=== PATIENT | female | born 1950 | race Caucasian/White ===

== ENCOUNTER → 2016-06-27 | Outpatient (CLI) | payer OTHER ==
[~2016-06-27] MED LIST: EZET10TA63; OXYC5TAB PO
--- NOTE | 2016-06-27 13:16 | DIAGNOSTIC IMAGING REPORT ---
Venous Doppler right leg RIGHT VENOUS DOPP LOWER EXT UNILAT CLINICAL HISTORY: LEG PAIN Right pain. Edema. TECHNIQUE: Venous Doppler COMPARISON STUDY: None FINDINGS: Normal study IMPRESSION: Normal study Electronically signed by: Saud Dawson M.D. 06/27/2016 1:14 PM Dictated Date/Time: 06/27/2016 1:14 PM
== END | disposition home or self-care (01) ==
LOC: C.ULTR 12:36
PROVIDERS: ATTEND Internal Medicine
DX: R60.0 Localized edema (principal)

== ENCOUNTER 2020-11-19 05:16 | Inpatient (IN) ==
--- NOTE | 2020-11-15 12:39 | Anesthesiology Consultation ---
Date of Service November 15, 2020 Assessment & Plan (1) Encounter for pre-operative examination: Chart Review Chart Review: Acceptable Risk for Surgery and Patient NOT seen in Pre Admission Testing Can we include most recent neuro note given patient's hx/o aneurysms/cerebral hemorrhages. Consults Requested none History Surgery Operation Date: 11/19/20 07:50 Proposed Procedures p Total Laparoscopic Hysterectomy, Bilateral Salpingectomy, Cystoscopy - Rivera Alanis MD Height/Weight Height: 5 ft Weight: 68.039 kg Allergies Allergy/AdvReac Type Severity Reaction Status Date / Time bisacodyl Allergy Unknown SEVERE Verified 11/12/20 09:02 REFLUX/BURNING codeine AdvReac Mild GI UPSET Verified 11/12/20 09:02 lisinopril AdvReac Unknown COUGH Verified 11/12/20 09:02 Medications Home Medications Medication Instructions Recorded Confirmed Last Taken aspirin 81 mg tablet,delayed 81 mg PO PM 07/17/18 11/12/20 09/08/18 release (Aspirin Low Dose) cyanocobalamin (vitamin B-12) 1,000 mcg PO QAM 07/17/18 11/12/20 09/09/18 1,000 mcg tablet (Vitamin B-12) losartan 50 mg-hydrochlorothiazide 1 tab PO QAM 07/17/18 11/12/20 09/09/18 12.5 mg tablet metformin 500 mg tablet,extended 500 mg PO QPM 07/17/18 11/12/20 09/08/18 release 24 hr pantoprazole 20 mg tablet,delayed 20 mg PO QAM 07/17/18 11/12/20 09/08/18 release pravastatin 40 mg tablet 40 mg PO QPM 07/17/18 11/12/20 09/08/18 pyridoxine (vitamin B6) 25 mg 25 mg PO QAM 07/17/18 11/12/20 09/09/18 tablet (Vitamin B-6) folic acid 800 mcg tablet 0.8 mg PO QAM 09/09/18 11/12/20 09/09/18 acetaminophen 500 mg tablet 1,000 mg PO Q6H PRN 11/12/20 11/12/20 Unknown alendronate 70 mg tablet (Fosamax) 70 mg PO WK 11/12/20 11/12/20 Unknown artificial tears(hypromellose) 0.3 1 drp OPHTHALMIC (EYE) HS 11/12/20 11/12/20 Unknown % eye gel (Systane Gel) calcium citrate 200 mg (950 mg) 200 mg PO BID 11/12/20 11/12/20 Unknown tablet Past Medical History Medical History Bleeding nose HX Cancer LEFT BREAST 2013-SURGERY/NO CHEMO/NO RADIATION Cerebral hemorrhage X 2-"BROKEN BLOOD VESSELS"-LAST EPISODE 1990 Diabetes mellitus, type 2 GERD (gastroesophageal reflux disease) Hyperlipidemia Hypertension Osteoarthritis Osteoporosis Past Family History Family History Father Family history of diabetes mellitus Sister Family history of diabetes mellitus Past Surgical History Surgical History Cerebral aneurysm 2015[place]DX'D [place] [facility] [place] [facility] [place] of cholecystectomy WITH APPENDECTOMY History of colonoscopy X 3 History of dilatation and curettage History of mastectomy LEFT BREAST CANCER-BILAT SURGERY-WITH IMPLANTS History of neck surgery BIOPSY LYMPH NODES-BENIGN History of repair of rotator cuff RIGHT History of tooth extraction Hx of lumpectomy LEFT BREAST Nausea and vomiting after administration of anesthetic agent Social History Smoking Status: Former smoker Do You Dip or Chew Tobacco: No Smoking End Date: QUIT 2001 Hx Alcohol Use: No Hx Substance Use: No Testing Laboratory Results Labs 11/12/20: Na 141, K 4.2, Cl 102, bicarb 28, BUN 18, creat 0.8, glucose 118. WBC 5.58, Hgb 13.5, Hct 40.2, Plt 159 Electrocardiogram Date: 06/30/20 Sinus bradycardia. Otherwise normal ECG. HR 58
[2020-11-19] MEDS ORDERED: LR 15ML/HR IV SCH (06:00)
[2020-11-19] MEDS ORDERED: SODIUM CHLORIDE 0.9% 1000ML 1,000 ML IV SCH (06:00)
[2020-11-19] MEDS ORDERED: ceFAZolin 2000MG 2,000 MG/15 ML SYR IV SCH (06:00)
[2020-11-19] MEDS ORDERED: LACTATED RINGER'S 1,000 ML IV SCH ×2 (06:00→19:00)
[2020-11-19] MEDS ORDERED: fentaNYL citrate 100 MCG/2 ML VIAL IV PRN (06:35)
[2020-11-19] MEDS ORDERED: ATROPINE SULFATE 0.1 MG/ML 10ML SYR IV PRN (06:35)
[2020-11-19] MEDS ORDERED: ONDANSETRON INJ 2 MG/ML 2 ML VIAL IV PRN (06:35)
[2020-11-19] MEDS ORDERED: SCOPOLAMINE 1 MG TDSY TD ONE (06:35)
[2020-11-19] MEDS ORDERED: PROMETHAZINE HCL 6.25 MG in SODIUM CHLORIDE 0.9% 50 ML IV PRN (06:35)
[2020-11-19] MEDS ORDERED: MIDAZOLAM HCL 1 MG/ML 2ML VIAL ONE (06:38)
[2020-11-19] MEDS ORDERED: fentaNYL citrate 100 MCG/2 ML VIAL ONE ×2 (06:38→09:44)
[2020-11-19] MEDS ORDERED: DEXAMETHASONE SOD INJ 4 MG/ML VIAL ONE (06:45)
[2020-11-19] MEDS ORDERED: LIDOCAINE 2% 2 ML VIAL/AMP(20MG/ML) INFIL ONE (06:45)
[2020-11-19] MEDS ORDERED: PROPOFOL IV EMULSION 10 MG/ML 20 ML VIAL IV ONE (06:45)
[2020-11-19] MEDS ORDERED: ONDANSETRON INJ 2 MG/ML 2 ML VIAL ONE ×2 (06:45→09:42)
[2020-11-19] MEDS ORDERED: ROCURONIUM BROMIDE 10 MG/ML 5 ML VIAL IV ONE (06:45)
[2020-11-19] MEDS ORDERED: METHYLENE BLUE 0.5% 10 ML VIAL ONE (06:46)
[2020-11-19] MEDS ORDERED: ACETAMINOPHEN 1000 MG/100 ML IV IV ONE (06:46)
[2020-11-19] MEDS ORDERED: BUPIVACAINE 0.5 % 5 MG/1 ML MPF 30ML VIAL ONE (06:46)
--- NOTE | 2020-11-19 06:59 | History & Physical Bridge Note ---
Date of Service November 19, 2020 History & Physical Bridge Note I have examined the patient, reviewed the History & Physical and in the interval since the performance of the History & Physical I have noted the following changes of clinical significance: no changes noted
[2020-11-19] MEDS ORDERED: MINERAL OIL LIGHT 10 ML BTL ONE (07:10)
[2020-11-19] MEDS ORDERED: GLYCOPYRROLATE 0.2 MG/ML VIAL ONE ×2 (07:54→09:19)
[2020-11-19] MEDS ORDERED: ePHEDrine sulfate 50 MG/ML SYR ONE (07:58)
[2020-11-19] MEDS ORDERED: FLOSEAL HEMOSTATIC MATRIX 10ML TOP ONE (09:15)
[2020-11-19] MEDS ORDERED: NEOSTIGMINE METHYLSULFATE 1 MG/ML 10ML VIAL ONE (09:19)
--- NOTE | 2020-11-19 10:25 | Post Operative Brief Note ---
Immediate Post Op Note v1 Date of Surgery November 19, 2020 Pre & Post Diagnosis Operation Date: 11/19/20 07:00 Pre-Op Diagnosis: Endometrial intraepithelial neoplasia Post-Op Diagnosis: Endometrial intraepithelial neoplasia I identified the patient and participated in the time-out.: Yes Procedure Operation Date: 11/19/20 07:00 Actual Procedures p Total Laparoscopic Hysterectomy, Bilateral Salpingo-Oophorectomy, Cystoscopy(Bilateral) - Rivera Alanis MD Surgeon Rivera Alanis MD Will Call Clerk tello burrows Estimated Blood Loss 15 Findings Consistent with Post-Op Diagnosis
[2020-11-19] MEDS ORDERED: KETOROLAC 30 MG/ML VIAL IV PRN (10:31)
[2020-11-19] MEDS ORDERED: IBUPROFEN 600 MG TAB PO PRN ×2 (10:31→18:46)
[2020-11-19] MEDS ORDERED: oxyCODONE/ACETAMINOPHEN 5mg/325mg TAB PO PRN ×4 (10:31→18:46)
--- NOTE | 2020-11-19 11:10 | Anesthesiology Progress Note ---
Date of Service November 19, 2020 Anesthesia Post Procedure Vital Signs Vital Signs: Temp Pulse Pulse Resp BP Pulse Ox 11/19/20 11:00 81 17 115/67 95 11/19/20 10:50 79 16 102/60 96 11/19/20 10:40 74 20 114/59 L 96 11/19/20 10:30 72 16 105/56 L 96 11/19/20 10:24 96.8 F L 74 16 107/50 L 94 11/19/20 05:44 97.9 F 75 18 149/82 H 99 Pain Intensity Lower Abdomen: Pain Intensity: 5 Transfer of Care Handoff Completed per policy Notes Mental Status: alert / awake / arousable and participated in evaluation Patient Amnestic to Procedure: Yes Nausea / Vomiting: adequately controlled Pain: adequately controlled Airway Patency, RR, SpO2: stable & adequate BP & HR: stable & adequate Hydration State: stable & adequate Anesthetic Complications: no major complications apparent and Pt Satisfied with anesthetic care
[2020-11-19] MEDS ORDERED: ARTIFICIAL TEARS OP STA (13:06)
--- NOTE | 2020-11-19 18:45 | Progress Note ---
Date of Service November 19, 2020 Assessment & Plan (1) Encounter for pre-operative examination: Plan: Pt is s/p lap Hysterectomy with BSO and cystoscopy pt is unable to void spontaneously plan admit overnight [facility] cath Results & Data ([facility]) Vital Signs (Past 12 Hours) Vital Signs Temp Pulse Pulse Resp BP Pulse Ox 11/19/20 18:00 36.8 C 75 20 110/67 99 11/19/20 17:00 78 20 134/66 100 11/19/20 15:00 70 20 130/75 100 11/19/20 13:50 83 16 117/60 97 11/19/20 12:50 36.4 C L 75 18 115/65 96 11/19/20 11:59 36.5 C 76 18 118/64 95 11/19/20 11:25 36.5 C 75 16 98/59 L 94 11/19/20 11:20 71 18 119/76 97 11/19/20 11:10 36.5 C 66 18 115/59 L 97 11/19/20 11:00 81 17 115/67 95 11/19/20 10:50 79 16 102/60 96 11/19/20 10:40 74 20 114/59 L 96 11/19/20 10:30 72 16 105/56 L 96 11/19/20 10:24 36.0 C L 74 16 107/50 L 94
[2020-11-19] MEDS ORDERED: ACETAMINOPHEN 325 MG TAB PO PRN (18:46)
[2020-11-19] MEDS ORDERED: SIMETHICONE 80 MG CHEW PO PRN (18:46)
[2020-11-19] MEDS ORDERED: MAGNESIUM HYDROXIDE SUSP 30 ML UDC PO PRN (18:46)
[2020-11-19] MEDS ORDERED: ZOLPIDEM TARTRATE 5 MG TAB PO PRN (18:46)
[2020-11-19] MEDS: CHECK SCOPOLAMINE PATCH PLACEMENT SCH ×2 (20:59→23:25)
--- NOTE | 2020-11-19 21:50 | Progress Note ---
Date of Service November 19, 2020 Assessment & Plan (1) Encounter for pre-operative examination: Plan: Pt doing well Still unable to void Frederick cath placed w/o difficulty Amanda colored urine Admission and Anticipated Discharge Date Admission Date: November 19, 2020 Results & Data ([facility]) Vital Signs (Past 12 Hours) Vital Signs Temp Pulse Pulse Resp BP Pulse Ox 11/19/20 18:00 36.8 C 75 20 110/67 99 11/19/20 17:00 78 20 134/66 100 11/19/20 15:00 70 20 130/75 100 11/19/20 13:50 83 16 117/60 97 11/19/20 12:50 36.4 C L 75 18 115/65 96 11/19/20 11:59 36.5 C 76 18 118/64 95 11/19/20 11:25 36.5 C 75 16 98/59 L 94 11/19/20 11:20 71 18 119/76 97 11/19/20 11:10 36.5 C 66 18 115/59 L 97 11/19/20 11:00 81 17 115/67 95 11/19/20 10:50 79 16 102/60 96 11/19/20 10:40 74 20 114/59 L 96 11/19/20 10:30 72 16 105/56 L 96 11/19/20 10:24 36.0 C L 74 16 107/50 L 94
[2020-11-19] MEDS ORDERED: ASPIRIN 81 MG ECTAB PO STA (22:07)
[2020-11-19] MEDS: DOCUSATE SODIUM 100 MG CAP PO SCH (22:27)
[2020-11-19] MEDS: LACTATED RINGER'S 1,000 ML IV SCH (22:28)
[2020-11-20] MEDS: LACTATED RINGER'S 1,000 ML IV SCH (05:59)
[2020-11-20] MEDS: CHECK SCOPOLAMINE PATCH PLACEMENT SCH (08:47)
[2020-11-20] MEDS: DOCUSATE SODIUM 100 MG CAP PO SCH (08:49)
[2020-11-20] MEDS ORDERED: PANTOprazole 40 MG TAB PO SCH (09:00)
[2020-11-20] MEDS ORDERED: LOSARTAN/HCTZ 50/12.5MG TAB PO SCH (09:00)
[2020-11-20 09:27] LABS: Basophils # (auto) 0.01 K/uL (0-0.2); Basophils % (auto) 0.1 %; Eosinophils # (auto) 0.01 K/uL (0-0.5); Eosinophils % (auto) 0.1 %; Hematocrit (blood only) 35.1 % (37-47); Hemoglobin 11.8 g/dL (12.0-16.0); Immature Granulocytes # (auto) 0.03 K/uL (0.00-0.02); Immature Granulocytes % (auto) 0.3 %; Lymphocytes % (auto) 19.3 %; Mean Corpuscular Hemoglobin 28.7 pg (25-34); Mean Corpuscular Hgb Conc 33.6 g/dL (32-36); Mean Corpuscular Volume 85.4 fL (80-100); Monocytes # (auto) 0.88 K/uL (0.11-0.59); Monocytes % (auto) 7.7 %; Neutrophils # (auto) 8.29 K/uL (1.4-6.5); Neutrophils % (auto) 72.5 %; Platelet Count 160 K/uL (130-400); RDW Coefficient of Variation 13.1 % (11.5-14.5); RDW Standard Deviation 40.6 fL (36.4-46.3); Red Blood Count 4.11 M/uL (4.2-5.4); White Blood Count 11.42 K/uL (4.8-10.8)
[2020-11-20 10:03] LABS: BUN Creatinine Ratio 12.4 (10-20); Calcium 8.4 mg/dl (8.5-10.1); Creatinine Clr Calc Pharmacy 49.2 ml/min; Est GFR (African American) 73.6 ml/min; Est GFR (Non-African American) 63.5 ml/min; Potassium 3.9 mmol/L (3.5-5.1)
--- NOTE | 2020-11-20 10:44 | Obstetrical Progress Note ---
Date of Service November 20, 2020 Assessment & Plan (1) Postop check: POD #1 s/p TLH, BSO and cystoscopy Urinary retension post op pt doing well Voided 3 X thia Am post cath removal D/c home with instructions pt doing Subjective Review of Systems All systems reviewed & are unremarkable except as noted in HPI & below Physical Exam Constitutional WD/WN, vitals as above Eyes PERRL, conjunctivae normal, anicteric sclerae ENMT external ear and nose normal, oropharynx normal Neck trachea midline, no thyromegaly Respiratory normal respiratory effort, lungs clear to auscultation Cardiovascular RRR, no murmur, no edema Chest (Breasts) normal inspection/palpation of breasts Gastrointestinal (Abdomen) normal bowel sounds, soft, nontender, no hepatosplenomegaly Musculoskeletal no cyanosis or clubbing, extremities motor strength 5/5 Skin + incision (Incision clean,dry and intact) Neurologic patellar DTR's 2+ bilat, sensation intact Psychiatric A+Ox3, euthymic affect Genitourinary no vaginal lesions, no adnexal mass Lymphatic no cervical or axillary lymphadenopathy Results & Data ([facility]) Vital Signs (Past 12 Hours) Vital Signs Temp Pulse Resp BP Pulse Ox 11/20/20 07:35 37 C 63 16 119/67 94 11/20/20 03:10 37.1 C 79 17 95/56 L 93 11/19/20 23:58 36.9 C 76 16 95/49 L 96
--- NOTE | 2020-11-20 21:01 | Discharge Summary (DS) ---
DATE OF ADMISSION: 11/19/2020 DATE OF DISCHARGE: 11/20/2020 HISTORY OF PRESENT ILLNESS: This is a 70-year-old status post breast cancer who underwent D and C, h ysteroscopy, which showed endometrial intraepithelial neoplasia. The patient on 11/19/2020 underwent total laparoscopic hysterectomy with bilateral salpingo-oophorectomy and cystoscopy. Details of jamaal collins is in the surgical record. Postop, the patient was scheduled to go home. She, however, had uri nary retention. After several attempts, she was not able to void. Decision was therefore made to ronda p the patient overnight. This morning, the patient has been able to void 3 times after the catheter has been removed and is doing well and has been discharged home in stable condition. PAST MEDICAL HISTORY: 1. History of breast cancer. 2. History of cerebral hemorrhage. 3. History of diabetes mellitus type 2. 4. History of gastroesophageal reflux disease. 5. History of hyperlipidemia. 6. Hypertension. 7. Osteoporosis. 8. Osteoarthritis. PAST SURGICAL HISTORY: 1. Cerebral aneurysm. 2. History of cholecystectomy. 3. Colonoscopies. 4. D and C. 5. Mastectomy. 6. Neck surgery. 7. Rotator cuff surgery. SOCIAL HISTORY: The patient denies tobacco, drug or alcohol use. The patient is and lives w ith spouse. FAMILY HISTORY: Noncontributory. ALLERGIES: The patient has no significant allergies. SHE REPORTS ALLERGY TO CODEINE, WHICH IS JUST A GI UPSET. REVIEW OF SYSTEMS: Negative except as dictated in the HPI. LABORATORY DATA: H and H this morning is 11.8/35.1. White count is 11.4. Platelets 160. PHYSICAL EXAMINATION: GENERAL: A well-developed, well-nourished white female in no acute distress. VITAL SIGNS: This morning, blood pressure is 118/67, pulse of 67, respirations 16, temperature 37 de grees Celsius. HEART: S1 and S2, regular rhythm and rate. LUNGS: Clear to auscultation bilaterally. ABDOMEN: Nontender, nondistended, positive bowel sounds. Incisions are clean, dry, and intact. PELVIC: Very little discharge. EXTREMITIES: No cyanosis, clubbing or edema. CONDITION ON DISCHARGE: Stable. OPERATIONS: Total laparoscopic hysterectomy, bilateral salpingo-oophorectomy and cystoscopy. DISCHARGE DIAGNOSES: 1. Postoperative after the above surgery. 2. Urinary retention. PLAN ON DISCHARGE: The patient is discharged home with instructions regarding activity, diet, and community hospital appointment. Job ID: [id number]
--- NOTE | 2020-11-22 08:20 | Operative Report (OR) ---
INDICATION FOR SURGERY: This is a 70-year-old status post breast cancer with endometrial intraepithe lial neoplasia. The patient underwent total laparoscopic hysterectomy, bilateral salpingo-oophorecto my, and cystoscopy. PREOPERATIVE DIAGNOSES: 1. History of breast cancer. 2. Endometrial intraepithelial neoplasia. POSTOPERATIVE DIAGNOSES: 1. History of breast cancer. 2. Endometrial intraepithelial neoplasia. PROCEDURE: Total laparoscopic hysterectomy with bilateral salpingo-oophorectomy, and cystoscopy. SURGEON: Rivera Alanis MD [employer]NAM[employer] MANAGER ARCHITECT: Keiko Neri. ANESTHESIA: General. DRAINS: None. ESTIMATED BLOOD LOSS: 15 mL. INTRAVENOUS FLUIDS: 800 mL. URINE OUTPUT: 200 mL of clear urine at the end of the procedure. INTRAOPERATIVE COMPLICATIONS: None. PATIENT CONDITION: Stable. DISPOSITION: Postanesthesia care unit. ATTESTATION: I performed the entire procedure. DECISION FOR [employer] MANAGER ARCHITECT: Flight Reservations Manager was necessary to help with retraction and manipulation of camera a nd other instrument to provide opportunity for safe surgery. FINDINGS: Atrophic vulva and vagina, cervix appeared grossly normal. Laparoscopic findings showed an 8-week size uterus. Both tubes and ovaries appeared grossly normal. There were some adhesions in t he right upper quadrant of the liver and abdominal wall. This was from a prior cholecystectomy. Res t of the abdominopelvic exam was unremarkable. DESCRIPTION OF PROCEDURE: The patient was taken to the operating room where she was prepped and drap ed in normal sterile fashion. A weighted speculum was placed in the vagina. Jett retractor was used to retract the vagina. Frederick catheter was placed in the bladder. Uterus was sounded to 9 cm. A VK uterine manipulator was placed in the uterus. This was to help with retraction during the laparosco py. Attention was paid to the abdominal part of the procedure where a supraumbilical incision was ma de with a scalpel. Nathalie was used to grab the fascia. A Veress needle was introduced into the abdo men at a 45-degree angle while tenting up the abdomen. Intraabdominal placement was confirmed with a water-filled syringe. Suction and water drop test was performed. Abdomen was insufflated with 3 L of CO2 gas. The Veress needle was removed and a 10 mm trocar with a laparoscope was placed in the abdomen and thi s was done under direct visualization, a nonbladed trocar was used. Inspection of the abdomen was as stated under findings. Initial inspection showed no damage to the bowel or abdominal structures. T hree other ports were placed under direct visualization, one 5 mm port on the right, another on the l eft, and another 10 mm port on the left lower quadrant. LigaSure was passed through the left accessory report. The left fallopian tube was identified, grasp ed 4 cm from the cornu of the uterus with the LigaSure and transected following the opening of the le ft anterior leaf of the broad ligament. This allowed for ____ procedure, left broad ligament. Mid-s ection of the left broad ligament, utero-ovarian and meso-ovarian pedicles were transected as well. There was good hemostasis. Same procedure was performed on the contralateral side. Anterior broad l igament dissection was carried out to the mid-section of the vesicouterine peritoneum over the bladde r using the Harmonic scalpel. Same procedure was performed on the contralateral side. Posterior bro ad ligament peritoneum was carefully dissected also from both sides over the uterosacral arch in orde r to display the ureters laterally. Using traction and countertraction, the [place] retractor and a n irrigation probe was used to further dissect the bladder off the lower segment of the uterus. Blad juan pillars and pubovesical fascia was dissected as well. Harmonic scalpel was used to obtain hemost asis where needed. The uterine manipulator was now palpated over the vaginal tissue. The right uterine pelvic pedicles were skeletonized and coagulated with LigaSure. Good hemostasis was obtained. Same procedure was pe rformed on the contralateral side. Cardinal ligaments were transected on both sides. Once good hemo stasis was obtained, colpotomy was performed using the Harmonic scalpel from both sides. Uterus was removed through the vagina while still attached to the uterine manipulator. A glove filled with spon ge was placed into the vagina to help maintain pneumoperitoneum. With a grasper, the remaining secti on of the left fallopian tube and ovary were repositioned anteromedially and a salpingo-oophorectomy was performed on both sides. This was performed using the LigaSure. Same procedure was performed on the contralateral side. These specimens were placed in the vagina and removed with a stone holding forcep through the vagina. EndoStitch closure device was passed through the 10 mm port on the left and using a [place] grasper for traction, the colpotomy closure was performed. Uterosacral ligaments were incorporated into the closure in order to decrease the risk of prolapse. Lapra-Tys were used with the EndoStitch. The cystoscopy part of the procedure was now performed. The scope for the cystoscopy was passed thro [facility] and placed in the bladder. The bladder was examined. No sutures or lesions seen in the bladder. Both ureters were seen with urine ejecting without any difficulty. There was a bubble seen in the uterine cavity, which confirms a close cavity. Once again, the bladder was examined thoroughly with the scope and there were no lesions. There was no blood in the bladder or any obvious trauma seen in the bladder. The scope was removed. Attention was paid back to the abdominal part of the procedure where the laparoscopic site incisions were closed. The 10 mm sites were closed in 2 layers. The left lower incision was closed first by alvaro Ayala and closed under direct visualization. The supraumbilical incision was clos ed by grabbing the fascia and Vicryl suture used to close the fascia, subcutaneous space was closed w ith 2-0 Vicryl, and skin of all incisions closed with 4-0 Monocryl. The patient was sent to recovery in stable condition. Job ID: [id number]
--- NOTE | 2020-11-25 06:29 | Coding Query ---
5 PATHOLOGY To promote full compliance with coding requirements relating to patient care, physician participation is requested in all cases of nutrition representative uncertainty. Please assist us with the question(s) below: Please review the Pathology report and please document any relevant diagnosis(es) below. Thank you. CELESTE Goldman CCS Diagnosis(es): Endometrial intraepithelial neoplasia MTDD
== END 2020-11-20 12:00 | disposition home or self-care (01) | DRG 743 ==
LOC: ASU 05:16 → 3N 18:46
DX: E78.5 Hyperlipidemia, unspecified; R33.8 Other retention of urine; Z85.3 Personal history of malignant neoplasm of breast; K21.9 Gastro-esophageal reflux disease without esophagitis; Z83.3 Family history of diabetes mellitus; Z80.41 Family history of malignant neoplasm of ovary; E11.9 Type 2 diabetes mellitus without complications; M81.0 Age-related osteoporosis without current pathological fracture; Z87.891 Personal history of nicotine dependence; N85.02 Endometrial intraepithelial neoplasia [EIN]

== ENCOUNTER 2021-12-14 11:37 | Observation (INO) ==
[2021-12-14 12:03] LABS: Basophils # (auto) 0.01 K/uL (0-0.2); Basophils % (auto) 0.2 %; Eosinophils # (auto) 0.03 K/uL (0-0.50); Eosinophils % (auto) 0.5 %; Hematocrit (blood only) 39.9 % (34.1-44.9); Hemoglobin 13.4 g/dl (12.0-16.0); Immature Granulocytes # (auto) 0.02 K/uL (0.00-0.02); Immature Granulocytes % (auto) 0.3 %; Lymphocytes # (auto) 1.46 K/uL (1.2-3.4); Lymphocytes % (auto) 23.2 %; Mean Corpuscular Hemoglobin 28.2 pg (25.0-34.0); Mean Corpuscular Hgb Conc 33.6 g/dL (32.0-36.0); Mean Platelet Volume 11.1 fL (9.4-12.3); Monocytes # (auto) 0.42 K/uL (0.24-0.82); Monocytes % (auto) 6.7 %; Neutrophils # (auto) 4.36 K/uL (1.4-6.5); Neutrophils % (auto) 69.1 %; Platelet Count 166 K/uL (130-400); RDW Coefficient of Variation 13.2 % (11.5-14.5); RDW Standard Deviation 40.4 fL (36.4-46.3); Red Blood Count 4.75 M/uL (3.93-5.22)
[2021-12-14 12:15] LABS: Partial Thromboplastin Ratio 0.9; Partial Thromboplastin Time 24.1 Seconds (21.0-31.0); Prothrombin Time 10.5 Seconds (9.0-12.0)
[2021-12-14 12:30] LABS: Albumin Globulin Ratio 1.3 (0.9-2); Albumin Level 4.6 gm/dl (3.4-5.0); BUN Creatinine Ratio 21.4 (10-20); Bilirubin,Total 0.6 mg/dl (0.2-1.0); Calcium 10.4 mg/dl (8.5-10.1); Creatinine Clr Calc Pharmacy 54.5 ml/min; Est GFR (African American) 80.5 ml/min; Est GFR (Non-African American) 69.4 ml/min; Globulin 3.5 gm/dl (2.5-4.0); Potassium 3.7 mmol/L (3.5-5.1); Total Protein 8.1 gm/dl (6.0-8.3)
--- NOTE | 2021-12-14 12:46 | XRay Report ---
XR chest 2V PA/lateral CLINICAL HISTORY: Atypical chest pain. COMPARISON STUDY: Chest radiograph April 04, 2006. FINDINGS: Lung volumes are normal. Lungs are clear. There is no pneumothorax or pleural effusion. The re is stable mild cardiomegaly. Mediastinal contours are normal. There is no evidence for pulmonary e gladys. Cholecystectomy clips are noted. Chondroid lesion within the left humeral head is unchanged. IMPRESSION: No acute cardiopulmonary findings. ACT 112: Negative or not required by law. Electronically signed by: Pradeep Alvarado M.D. 12/14/2021 12:45 PM
--- NOTE | 2021-12-14 13:29 | Emergency Department Note ---
Impression & Plan Left-sided chest pain ED Provider Note Name: HYUN ESCALANTE Age: 71 Sex: F Arrives Via: Walk-In Informant: Patient, ED Provider: Camilo Olivares MD Chief Complaint: Chest pain Impression: As per impressions above Medical Decision Makin-year-old female with history hypertension, dyslipidemia, hyperglycemia and no previous cardiac disease though does have a family history of CAD. She arrives with 2 weeks of increasing intermittent chest pains. Primarily left-sided with radiation to the left upper arm and sometimes the neck but at times she has right-sided chest pains and other she has the pain radiating down the way down to her left arm. She has no concerning findings on initial examination with a soft abdomen no distress and breathing comfortably. Her initial vital signs are unremarkable. Her EKG is unchanged from 2006. Her initial troponin is negative. I did discuss case with cardiology who note would not be unreasonable to bring her in overnight and plan on getting cardiac rule out with stress test followed. I discussed the options with patient regarding staying overnight getting a stress test versus discharge and try to get a stress test the next few weeks. She is agreeable to staying overnight and hospitalist was consulted for further management. Prior Medical Record and Triage/Nursing Notes reviewed by Me Additional history obtained from chart Differentials:Cardiac ischemia, aortic dissection, pulmonary embolism, pneumothorax, pneumonia, pericarditis, myocarditis, esophageal rupture, GERD, cholecystitis, pancreatitis, musculoskeletal, as well as other pathologies. Vital Signs: reviewed and remarkable for no significant abnormalities Interventions: asa 324mg po Labs:Reviewed and remarkable for no significant abnormalities Imaging:X ray results are stated below per my interpretation: Chest: 1 view: No infiltrate, no effusion, normal cardiac border. EKG:Per My Interpretation: Indication chest pain: NSR 74 bpm, qtc 437. No Ectopy. No Ischemia. Compared to EKG 04/05/06, no significant changes. Consults:Dr Huber Fong - Dr Wattesr Hospitalist Plan: Disposition:Hospitalization. Condition: Good History of Present Illness:71-year-old female arrives for evaluation of chest pain. Patient with intermittent chest pain over the last 2 to 3 weeks. She notes it is not really associated specifically with exertion but she has noticed that with exertion. She also notes that at times when she is just moving around the house. Pain is primarily substernal into the left side. At times it radiates down the left arm. Usually the pain stops at the elbow. She also has at times where it radiates in the back of her left neck. When this occurs she has severe fatigue though has no palpitations, nausea, vomiting, syncope. She has no abdominal pain, fevers, chills, back pain, urinary/bowel symptoms, leg swelling, calf pain or any other concerning signs or symptoms. She has no history of cardiac disease. She does have a history of GERD and states this is not similar to that. Denies any recent falls, trauma, injuries. No medications prior to arrival for ROS: See above HPI for pertinent positives & negatives. A total of 10 systems reviewed and were otherwise negative. Past Medical History:See Below Past Surgical History:See Below Family History:See Below Social History:See Below Home Medications:See Below Allergies:See Below Vitals:Blood Pressure: 162/87, Pulse 73, RR 18, T 37.1C, O2 97% on RA Physical Exam: GENERAL: Patient is anxious appearing and in minimal distress. EYES: No scleral icterus, unremarkable pupils. ENT: Mucous membranes moist, no nasal congestion. NECK: No masses appreciated, nomeningismus, trachea is midline. RESPIRATORY: No dyspnea. Clear to auscultation and equal bilaterally. No wheeze, no rhonchi. CARDIOVASCULAR: Regular rate and rhythm.No murmurs, rubs, gallops appreciated. GASTROINTESTINAL: Abdomen soft, non-tender, no peritonitis.Bowel sounds positive.No masses appreciated. BACK: No midline tenderness, no CVA tenderness EXTREMITIES: Normal motion all extremities, no cyanosis, no edema. NEUROLOGIC: Alert and oriented, no acute motor or sensory deficits, no focal weakness, cranial nerves grossly intact. SKIN: No rash, no jaundice, no diaphoresis. PSYCH: Appropriate GCS: 15 ED Course: Times/Reassessments: Stable throughout no distress and comfortable plan for hospitalization. Camilo Olivares MD Past Med/Surg History Medical History Bleeding nose HX Cerebral hemorrhage X 2-"BROKEN BLOOD VESSELS"-LAST EPISODE 1990 Diabetes mellitus, type 2 Endometrial cancer S/p hysterectomy GERD (gastroesophageal reflux disease) History of left breast cancer S/p bilateral mastectomies and 7 years of tamoxifen Hyperlipidemia Hypertension MTHFR mutation Osteoarthritis Osteoporosis Surgical History Cerebral aneurysm 2015 left ICA aneurysm s/p pipeline embolization History of cholecystectomy WITH APPENDECTOMY History of colonoscopy X 3 History of dilatation and curettage History of hysterectomy History of mastectomy LEFT BREAST CANCER-BILAT SURGERY-WITH IMPLANTS History of neck surgery BIOPSY LYMPH NODES-BENIGN History of repair of rotator cuff RIGHT History of tooth extraction Hx of lumpectomy LEFT BREAST Nausea and vomiting after administration of anesthetic agent Family History Father Family history of diabetes mellitus Sister Family history of diabetes mellitus Social History (Updated 12/14/21 @ 15:11 by MARTA Rocha) Smoking Status: Former smoker Second Hand Exposure: No; Hx Alcohol Use: No Hx Substance Use: No Preferred Language: Iraqi Communication Ability: Effective Diamond Grader Required: No Beliefs That Will Affect Care: None Current Living Situation: Spouse current occupational status: retired Feels Safe at Home: Yes Assistive Devices: None Allergies Allergies Allergy/AdvReac Type Severity Reaction Status Date / Time bisacodyl Allergy Intermediate SEVERE Verified 11/19/20 05:36 REFLUX/BURNING codeine AdvReac Mild GI UPSET Verified 11/19/20 05:36 lisinopril AdvReac Mild COUGH Verified 11/19/20 05:36 Home Meds Home Medications Medication Instructions Recorded Confirmed aspirin 81 mg tablet,delayed 81 mg PO PM 07/17/18 12/14/21 release (Beth Low Dose Aspirin) cyanocobalamin (vitamin B-12) 1,000 mcg PO QAM 07/17/18 12/14/21 1,000 mcg tablet (Vitamin B-12) losartan 50 mg-hydrochlorothiazide 1 tab PO QAM 07/17/18 12/14/21 12.5 mg tablet metformin 500 mg tablet,extended 500 mg PO QPM 07/17/18 12/14/21 release 24 hr pantoprazole 20 mg tablet,delayed 20 mg PO QAM 07/17/18 12/14/21 release pravastatin 40 mg tablet 40 mg PO QPM 07/17/18 12/14/21 pyridoxine (vitamin B6) 25 mg 25 mg PO QAM 07/17/18 12/14/21 tablet (Vitamin B-6) folic acid 800 mcg tablet 0.8 mg PO QAM 09/09/18 12/14/21 alendronate 70 mg tablet (Fosamax) 70 mg PO WK 11/12/20 12/14/21 artificial tears(hypromellose) 0.3 1 drp ophthalmic (eye) HS 11/12/20 12/14/21 % eye gel (Systane Gel) calcium citrate 200 mg (950 mg) 200 mg PO BID 11/12/20 12/14/21 tablet fluticasone propionate 50 2 spray intranasal DAILY 12/14/21 12/14/21 mcg/actuation nasal spray,suspension Previous Rx's Medication Instructions Recorded acetaminophen 650 mg 650 mg PO Q8H PRN fever #30 tabs 11/19/20 tablet,extended release (Tylenol 8 Hour) Results & Data (ED) Vital Signs Vital Signs - 24 hr 12/14/21 11:43 12/14/21 13:15 12/14/21 14:40 Temperature 37.1 C Temperature Source Temporal Artery Scan Pulse Rate 82 73 Pulse Rhythm Regular Respiratory Rate 18 Respiratory Effort / Characteristics Non-Labored Respiratory Depth Normal Respiratory Pattern Regular Blood Pressure 162/87 H Blood Pressure Mean 112 Pulse Oximetry 98 97 Oxygen Delivery Method Room Air Room Air Sepsis Recent Fever Within 48 Hours No Sepsis New/Unexplained Change in Mental Status N/A Sepsis Action Taken by Nursing No Action Required Laboratory Data Result diagrams: 12/14/21 11:52 12/14/21 11:52 Lab Results 12/14/21 12/14/21 12/14/21 Range/Units 11:52 11:52 11:52 WBC 6.30 (4.8-10.8) K/ul RBC 4.75 (3.93-5.22) M/uL Hgb 13.4 (12.0-16.0) g/dl Hct 39.9 (34.1-44.9) % MCV 84.0 (80.0-100.0) fL MCH 28.2 (25.0-34.0) pg MCHC 33.6 (32.0-36.0) g/dL RDW Std Deviation 40.4 (36.4-46.3) fL RDW Coeff of [place] 13.2 (11.5-14.5) % Plt Count 166 (130-400) K/uL MPV 11.1 (9.4-12.3) fL Immature Gran % (Auto) 0.3 % Neut % (Auto) 69.1 % Lymph % (Auto) 23.2 % [place] % (Auto) 6.7 % Eos % (Auto) 0.5 % Baso % (Auto) 0.2 % Neut # (Auto) 4.36 (1.4-6.5) K/uL Lymph # (Auto) 1.46 (1.2-3.4) K/uL [place] # (Auto) 0.42 (0.24-0.82) K/uL Eos # (Auto) 0.03 (0-0.50) K/uL Baso # (Auto) 0.01 (0-0.2) K/uL Immature Gran # (Auto) 0.02 (0.00-0.02) K/uL PT 10.5 (9.0-12.0) Seconds INR 1.0 (0.9-1.1) APTT 24.1 (21.0-31.0) Seconds PTT Ratio 0.9 D-Dimer (0-500) ug/L FEU Sodium 140 (136-145) mmol/L Potassium 3.7 (3.5-5.1) mmol/L Chloride 104 (98-107) mmol/L Carbon Dioxide 29 (21-32) mmol/L Anion Gap 7 (3-11) BUN 18 (6-23) mg/dl Creatinine 0.84 (0.6-1.2) mg/dl Est Cr Clr Drug Dosing 54.5 ml/min Est GFR ( Amer) 80.5 ml/min Est GFR (Non-Af Amer) 69.4 ml/min BUN/Creatinine Ratio 21.4 H (10-20) Glucose 142 H (70-99(Fasting)) mg/dl Calcium 10.4 H (8.5-10.1) mg/dl Total Bilirubin 0.6 (0.2-1.0) mg/dl AST 21 (13-39) U/L ALT 22 (7-52) U/L Alkaline Phosphatase 53 (34-104) U/L Troponin I High Sens 4.0 (0-14) pg/ml Total Protein 8.1 (6.0-8.3) gm/dl Albumin 4.6 (3.4-5.0) gm/dl Globulin 3.5 (2.5-4.0) gm/dl Albumin/Globulin Ratio 1.3 (0.9-2) SARS-CoV-2, RNA, NAAT (NEGATIVE) 12/14/21 12/14/21 Range/Units 11:52 Unknown WBC (4.8-10.8) K/ul RBC (3.93-5.22) M/uL Hgb (12.0-16.0) g/dl Hct (34.1-44.9) % MCV (80.0-100.0) fL MCH (25.0-34.0) pg MCHC (32.0-36.0) g/dL RDW Std Deviation (36.4-46.3) fL RDW Coeff of [place] (11.5-14.5) % Plt Count (130-400) K/uL MPV (9.4-12.3) fL Immature Gran % (Auto) % Neut % (Auto) % Lymph % (Auto) % [place] % (Auto) % Eos % (Auto) % Baso % (Auto) % Neut # (Auto) (1.4-6.5) K/uL Lymph # (Auto) (1.2-3.4) K/uL [place] # (Auto) (0.24-0.82) K/uL Eos # (Auto) (0-0.50) K/uL Baso # (Auto) (0-0.2) K/uL Immature Gran # (Auto) (0.00-0.02) K/uL PT (9.0-12.0) Seconds INR (0.9-1.1) APTT (21.0-31.0) Seconds PTT Ratio D-Dimer 220 (0-500) ug/L FEU Sodium (136-145) mmol/L Potassium (3.5-5.1) mmol/L Chloride (98-107) mmol/L Carbon Dioxide (21-32) mmol/L Anion Gap (3-11) BUN (6-23) mg/dl Creatinine (0.6-1.2) mg/dl Est Cr Clr Drug Dosing ml/min Est GFR ( Amer) ml/min Est GFR (Non-Af Amer) ml/min BUN/Creatinine Ratio (10-20) Glucose (70-99(Fasting)) mg/dl Calcium (8.5-10.1) mg/dl Total Bilirubin (0.2-1.0) mg/dl AST (13-39) U/L ALT (7-52) U/L Alkaline Phosphatase (34-104) U/L Troponin I High Sens (0-14) pg/ml Total Protein (6.0-8.3) gm/dl Albumin (3.4-5.0) gm/dl Globulin (2.5-4.0) gm/dl Albumin/Globulin Ratio (0.9-2) SARS-CoV-2, RNA, NAAT NEGATIVE (NEGATIVE) Imaging Data Radiologist's Impression: Chest X-Ray 12/14/21 11:47 XR chest 2V PA/lateral CLINICAL HISTORY: Atypical chest pain. COMPARISON STUDY: Chest radiograph April 04, 2006. FINDINGS: Lung volumes are normal. Lungs are clear. There is no pneumothorax or pleural effusion. There is stable mild cardiomegaly. Mediastinal contours are normal. There is no evidence for pulmonary edema. Cholecystectomy clips are noted. Chondroid lesion within the left humeral head is unchanged. IMPRESSION: No acute cardiopulmonary findings. ACT 112: Negative or not required by law. Electronically signed by: Pradeep Alvarado M.D. 12/14/2021 12:45 PM Discharge Plan Visit Data Chief Complaint: Cardiac Assessment Stated Complaint: PAIN IN CHEST AND DOWN ARM, GERD HISTORY ED Provider: Camilo Olivares Discharge Problem: Left-sided chest pain Forms Stand Alone Forms: My [facility] Prescriptions Prescriptions: No Action pravastatin 40 mg tablet 40 mg PO QPM pyridoxine (vitamin B6) [Vitamin B-6] 25 mg Tablet 25 mg PO QAM cyanocobalamin (vitamin B-12) [Vitamin B-12] 1,000 mcg Tablet 1,000 mcg PO QAM aspirin [Beth Low Dose Aspirin] 81 mg Tablet,Delayed Release (Dr/Ec) 81 mg PO PM pantoprazole 20 mg tablet,delayed release (DR/EC) 20 mg PO QAM losartan-hydrochlorothiazide 50-12.5 mg tablet 1 tab PO QAM metformin 500 mg tablet extended release 24 hr 500 mg PO QPM folic acid 800 mcg Tablet 0.8 mg PO QAM calcium citrate 200 mg (950 mg) Tablet 200 mg PO BID Systane Gel 0.3 % Gel 1 drp OPHTHALMIC (EYE) HS alendronate [Fosamax] 70 mg Tablet 70 mg PO WK acetaminophen [Tylenol 8 Hour] 650 mg tablet extended release 650 mg PO Q8H PRN (Reason: fever) Qty: 30 0RF fluticasone propionate 50 mcg/actuation spray,suspension 2 spray INTRANASAL DAILY Referrals Referrals: Jaky Victoria MD [Primary Care Provider] -
[2021-12-14 14:51] LABS: D Dimer 220 ug/L FEU (0-500)
--- NOTE | 2021-12-14 15:15 | History & Physical Report ---
Date of Service December 14, 2021 Assessment & Plan (1) Chest pain: Plan: Admit to telemetry Patient presenting from home with reports of intermittent chest pain for the past few weeks. Patient denies any specific causative or alleviating factors. In the ED, initial HS troponin negative, EKG without acute ST changes. 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 Consider increasing PPI or adding H2 lucina. (2) Hypertension: Plan: BP mildly elevated, likely situational Continue home dose losartan/HCTZ for now, make adjustments as needed (3) Diabetes mellitus, type 2: Plan: Hgb A1c 6.5 07/2021 Hold metformin and utilize NovoLog per protocol while hospitalized (4) DVT prophylaxis: Plan: SQ Lovenox History of Present Illness Chief Complaint: Chest pain Primary Care Provider: Jaky Victoria MD 71-year-old female with PMH HTN, HLD, DM type II, MTHFR mutation (with normal homocysteine level 2017), history of left breast cancer s/p bilateral mastectomies and 7 years of tamoxifen therapy, history of endometrial cancer s/p hysterectomy, history of left ICA aneurysm s/p embolization in 2014, and other problems listed below who presents the ED for evaluation of chest pain. Patient reports intermittent episodes of chest pain over the past few weeks. Patient denies any specific causative or alleviating factors. Patient states the pain is located on the left side of her chest and sometimes radiates into the left arm, across her back, or up into her neck. She describes the pain as an ache. Patient reports associated belching at times. She denies shortness of breath, diaphoresis, nausea. Patient denies any other recent illnesses, fevers, chills. She denies abdominal pain, vomiting, diarrhea. No urinary symptoms. In the ED, initial HS troponin is negative, EKG without acute ST changes. Patient is hemodynamically stable. Allergies Allergy/AdvReac Type Severity Reaction Status Date / Time bisacodyl Allergy Intermediate SEVERE Verified 11/19/20 05:36 REFLUX/BURNING codeine AdvReac Mild GI UPSET Verified 11/19/20 05:36 lisinopril AdvReac Mild COUGH Verified 11/19/20 05:36 Home Medications Medication Instructions Recorded Confirmed Type aspirin 81 mg tablet,delayed 81 mg PO PM 07/17/18 12/14/21 History release (Beth Low Dose Aspirin) cyanocobalamin (vitamin B-12) 1,000 mcg PO QAM 07/17/18 12/14/21 History 1,000 mcg tablet (Vitamin B-12) losartan 50 mg-hydrochlorothiazide 1 tab PO QAM 07/17/18 12/14/21 History 12.5 mg tablet metformin 500 mg tablet,extended 500 mg PO QPM 07/17/18 12/14/21 History release 24 hr pantoprazole 20 mg tablet,delayed 20 mg PO QAM 07/17/18 12/14/21 History release pravastatin 40 mg tablet 40 mg PO QPM 07/17/18 12/14/21 History pyridoxine (vitamin B6) 25 mg 25 mg PO QAM 07/17/18 12/14/21 History tablet (Vitamin B-6) folic acid 800 mcg tablet 0.8 mg PO QAM 09/09/18 12/14/21 History alendronate 70 mg tablet (Fosamax) 70 mg PO WK 11/12/20 12/14/21 History artificial tears(hypromellose) 0.3 1 drp ophthalmic (eye) HS 11/12/20 12/14/21 History % eye gel (Systane Gel) calcium citrate 200 mg (950 mg) 200 mg PO BID 11/12/20 12/14/21 History tablet acetaminophen 650 mg 650 mg PO Q8H PRN fever #30 tabs 11/19/20 12/14/21 Rx tablet,extended release (Tylenol 8 Hour) fluticasone propionate 50 2 spray intranasal DAILY 12/14/21 12/14/21 History mcg/actuation nasal spray,suspension Past Med/Surg History Medical History Bleeding nose HX Cerebral hemorrhage X 2-"BROKEN BLOOD VESSELS"-LAST EPISODE 1990 Diabetes mellitus, type 2 Endometrial cancer S/p hysterectomy GERD (gastroesophageal reflux disease) History of left breast cancer S/p bilateral mastectomies and 7 years of tamoxifen Hyperlipidemia Hypertension MTHFR mutation Osteoarthritis Osteoporosis Surgical History Cerebral aneurysm 2014 left ICA aneurysm s/p pipeline embolization History of cholecystectomy WITH APPENDECTOMY History of colonoscopy X 3 History of dilatation and curettage History of hysterectomy History of mastectomy LEFT BREAST CANCER-BILAT SURGERY-WITH IMPLANTS History of neck surgery BIOPSY LYMPH NODES-BENIGN History of repair of rotator cuff RIGHT History of tooth extraction Hx of lumpectomy LEFT BREAST Nausea and vomiting after administration of anesthetic agent Family History Father Family history of diabetes mellitus Sister Family history of diabetes mellitus Social History (Updated 12/14/21 @ 15:11 by MARTA Rocha) Smoking Status: Former smoker Second Hand Exposure: No; Hx Alcohol Use: No Hx Substance Use: No Preferred Language: Frisian Communication Ability: Effective Garbage Man Required: No Beliefs That Will Affect Care: None Current Living Situation: Spouse current occupational status: retired Feels Safe at Home: Yes Assistive Devices: None Review of Systems Review of Systems: ROS per HPI, all other systems reviewed and negative Physical Exam Physical Exam: Please refer to Dr. Watters's addendum for physical exam. Results & Data Results & Data ([facility]) Vital Signs (Past 12 Hours) Vital Signs Temp Pulse Resp BP Pulse Ox O2 Del Method 12/14/21 14:40 97 Room Air 12/14/21 13:15 73 12/14/21 11:43 37.1 C 82 18 162/87 H 98 Room Air Laboratory Results Short CBC 12/14/21 Range/Units 11:52 WBC 6.30 (4.8-10.8) K/ul Hgb 13.4 (12.0-16.0) g/dl Hct 39.9 (34.1-44.9) % Plt Count 166 (130-400) K/uL BMP 12/14/21 11:52 Sodium 140 Potassium 3.7 Chloride 104 Carbon Dioxide 29 BUN 18 Creatinine 0.84 Glucose 142 H Calcium 10.4 H Liver Function 12/14/21 Range/Units 11:52 Total Bilirubin 0.6 (0.2-1.0) mg/dl AST 21 (13-39) U/L ALT 22 (7-52) U/L Alkaline Phosphatase 53 (34-104) U/L Albumin 4.6 (3.4-5.0) gm/dl Diagnostic Findings Chest X-Ray 12/14/21 11:47 XR chest 2V PA/lateral CLINICAL HISTORY: Atypical chest pain. COMPARISON STUDY: Chest radiograph April 04, 2006. FINDINGS: Lung volumes are normal. Lungs are clear. There is no pneumothorax or pleural effusion. There is stable mild cardiomegaly. Mediastinal contours are normal. There is no evidence for pulmonary edema. Cholecystectomy clips are noted. Chondroid lesion within the left humeral head is unchanged. IMPRESSION: No acute cardiopulmonary findings. ACT 112: Negative or not required by law. Electronically signed by: Pradeep Alvarado M.D. 12/14/2021 12:45 PM Code Status & VTE Plan VTE Prophylaxis Plan VTE Prophylaxis will be ordered: Yes Supervising Physician Co-Signing Physician Notes Patient is a 71-year-old female with history of diabetes mellitus, hypertension, hyperlipidemia, breast cancer and other medical problems presents with history of intermittent chest pain since last few weeks. Chest pain is retrosternal, at times left-sided which radiates to left arm and across her back occasionally. Admits to have been belching more frequently. Reports history of GERD and is on pantoprazole which he takes regularly. Please review HPI for complete details of presentation. Blood breath reviewed. Abnormal labs--glucose 142, calcium 10.4. Initial troponin normal. Chest x-ray showed no acute cardiopulmonary findings. EKG showed normal sinus rhythm, no significant ST-T wave changes when compared to prior EKG, QTC 437. Patient is admitted for management of atypical chest pain. Rule out ACS. Trend cardiac enzymes, check resting echo. Plan for stress test in the morning. Continue aspirin, statin. We will repeat EKG in the morning as well. GERD likely contributing to symptoms as well. We will consider further management based on stress test. Physical Exam: Vitals signs as noted above General Appearance:Moderately built and nourished, no apparent distress Head: normocephalic, Atraumatic Eyes: normal inspection, EOMI Neck: supple, Trachea midline Respiratory/Chest: Normal breath sounds, CTA, No accessory muscle use Cardiovascular: S1, S2, No murmur Abdomen/GI:Soft, Non tender, Bowel sounds present Extremities/Musculoskeletal:normal inspection, no edema Neurologic/Psych:AAOX3, grossly no focal neurological deficits Skin:normal color,warm I personally reviewed the record. Patient is interviewed and examined at bedside. Patient's care is coordinated with Nanette Hoffmann SERVICE OBSERVER. Please refer to the documentation above for details of patient's presentation and for discussion of other issues.
[2021-12-14] MEDS ORDERED: GLUCOSE 40% GEL 15 GM TUBE PO PRN (17:10)
[2021-12-14] MEDS ORDERED: CARBOHYDRATES FOR HYPOGLYCEMIA PO PRN (17:10)
[2021-12-14] MEDS ORDERED: DEXTROSE 50% 50 ML SYRINGE IV PRN (17:10)
[2021-12-14] MEDS ORDERED: GLUCOSE 10 TAB/TUBE PO PRN (17:10)
[2021-12-14] MEDS ORDERED: ACETAMINOPHEN 325 MG TAB PO PRN (17:10)
[2021-12-14] MEDS ORDERED: NITROGLYCERIN SL 0.4 MG/TAB TAB SL PRN (17:10)
[2021-12-14] MEDS ORDERED: GLUCAGON FOR INJ 1 MG VIAL SQ PRN (17:10)
[2021-12-14] MEDS: INSULIN ASPART PER UNIT SC SCH ×2 (17:41→20:10)
[2021-12-14] MEDS ORDERED: ENOXAPARIN INJ 40 MG/0.4 ML SYR SQ SCH (18:00)
[2021-12-14] MEDS ORDERED: PRAVASTATIN SOD 40 MG TAB PO SCH (21:00)
[2021-12-14] MEDS ORDERED: ASPIRIN 81 MG ECTAB PO SCH (21:00)
--- NOTE | 2021-12-15 05:58 | Electrocardiogram Report ---
Test Reason : Blood Pressure : / mmHG Vent. Rate : 074 BPM Atrial Rate : 074 BPM P-R Int : 148 ms QRS Dur : 100 ms QT Int : 394 ms P-R-T Axes : 052 -26 036 degrees QTc Int : 437 ms Normal sinus rhythm Incomplete right bundle branch block When compared with ECG of 05-APR-2006 06:52, Incomplete right bundle branch block is now Present Confirmed by Christiano Ewing ([id number]) on 12/15/2021 5:58:14 AM Referred By: Confirmed By:Christiano Ewing
[2021-12-15 06:50] LABS: Hematocrit (blood only) 37.9 % (34.1-44.9); Hemoglobin 12.8 g/dl (12.0-16.0); Mean Corpuscular Hemoglobin 27.9 pg (25.0-34.0); Mean Corpuscular Hgb Conc 33.8 g/dL (32.0-36.0); Mean Corpuscular Volume 82.8 fL (80.0-100.0); Mean Platelet Volume 11.5 fL (9.4-12.3); Platelet Count 165 K/uL (130-400); RDW Coefficient of Variation 13.3 % (11.5-14.5); RDW Standard Deviation 39.6 fL (36.4-46.3); Red Blood Count 4.58 M/uL (3.93-5.22); White Blood Count 6.12 K/ul (4.8-10.8)
[2021-12-15 07:23] LABS: Troponin I High Sensitivity 4.7 pg/ml (0-14)
[2021-12-15 07:36] LABS: BUN Creatinine Ratio 30.6 (10-20); Calcium 9.8 mg/dl (8.5-10.1); Chol HDL Ratio 3.3 (0-5); Creatinine Clr Calc Pharmacy 62.6 ml/min; Est GFR (Non-African American) 83.7 ml/min; Potassium 3.9 mmol/L (3.5-5.1)
[2021-12-15] MEDS: INSULIN ASPART PER UNIT SC SCH ×2 (08:06→12:39)
[2021-12-15 08:19] LABS: Estimated Average Glucose 131 mg/dl; Hemoglobin A1C 6.2 % (4.5-5.6)
[2021-12-15] MEDS ORDERED: PANTOprazole 40 MG TAB PO SCH (09:00)
[2021-12-15] MEDS ORDERED: LOSARTAN/HCTZ 50/12.5MG TAB PO SCH (09:00)
[2021-12-15] MEDS ORDERED: CYANOCOBALAMIN (B-12) 500 MCG TABLET PO SCH (09:00)
[2021-12-15] MEDS ORDERED: FOLIC ACID 400 MCG TAB PO SCH (09:00)
--- NOTE | 2021-12-15 09:29 | Communication Note ---
Date of Service: December 15, 2021 Formal stress echocardiogram report pending. Patient exercised for 7 minutes, 8.5-minute on a standard Mp protocol without evidence of ischemia by EKG and echocardiographic criteria achieving 100% age- predicted maximal heart rate
--- NOTE | 2021-12-15 11:32 | Discharge Summary ---
Date of Service December 15, 2021 Admission HPI Per Admitting Provider 71-year-old female with PMH HTN, HLD, DM type II, MTHFR mutation (with normal homocysteine level 2017), history of left breast cancer s/p bilateral mastectomies and 7 years of tamoxifen therapy, history of endometrial cancer s/p hysterectomy, history of left ICA aneurysm s/p embolization in 2014, and other problems listed below who presents the ED for evaluation of chest pain. Patient reports intermittent episodes of chest pain over the past few weeks. Patient denies any specific causative or alleviating factors. Patient states the pain is located on the left side of her chest and sometimes radiates into the left arm, across her back, or up into her neck. She describes the pain as an ache. Patient reports associated belching at times. She denies shortness of breath, diaphoresis, nausea. Patient denies any other recent illnesses, fevers, chills. She denies abdominal pain, vomiting, diarrhea. No urinary symptoms. In the ED, initial HS troponin is negative, EKG without acute ST changes. Patient is hemodynamically stable. Admission Exam Per Admitting Provider Vitals signs as noted above General Appearance:Moderately built and nourished, no apparent distress Head: normocephalic, Atraumatic Eyes: normal inspection, EOMI Neck: supple, Trachea midline Respiratory/Chest: Normal breath sounds, CTA, No accessory muscle use Cardiovascular: S1, S2, No murmur Abdomen/GI:Soft, Non tender, Bowel sounds present Extremities/Musculoskeletal:normal inspection, no edema Neurologic/Psych:AAOX3, grossly no focal neurological deficits Skin:normal color,warm Principal Diagnosis atypical chest pain Discharge Exam General Appearance:Moderately built and nourished, no apparent distress Head: normocephalic, Atraumatic Eyes: normal inspection, EOMI Neck: supple, Trachea midline Respiratory/Chest: Normal breath sounds, CTA, No accessory muscle use Cardiovascular: S1, S2, No murmur Abdomen/GI:Soft, Non tender, Bowel sounds present Extremities/Musculoskeletal:normal inspection, no edema Neurologic/Psych:AAOX3, grossly no focal neurological deficits Skin:normal color,warm Discharge Data Allergies Allergy/AdvReac Type Severity Reaction Status Date / Time bisacodyl Allergy Intermediate SEVERE Verified 11/19/20 05:36 REFLUX/BURNING codeine AdvReac Mild GI UPSET Verified 11/19/20 05:36 lisinopril AdvReac Mild COUGH Verified 11/19/20 05:36 Consultations 12/14/21 14:25 ED Decision to Admit Stat Hospital Course (1) Chest pain: Patient presenting from home with reports of intermittent chest pain for the past few weeks. Patient denies any specific causative or alleviating factors. In the ED, initial HS troponin negative, EKG without acute ST changes. Risk factors include HTN, HLD, DM D-dimer negative Serial troponin negative Continue LINE PILOT statin and ASA Stress test was negative - instructed on taking pantoprazole 30 minutes prior to first meal of the day - ok for discharge and PCP follow up (2) Hypertension: BP mildly elevated, likely situational Continue home dose losartan/HCTZ for now, make adjustments as needed (3) Diabetes mellitus, type 2: Hgb A1c 6.5 07/2021 Hold metformin and utilize NovoLog per protocol while hospitalized (4) DVT prophylaxis: SQ Lovenox Total Time Total Time Spent Total Time Spent (In Minutes): 25 Total Time Includes: Examination of the Patient, Discharge Planning and Medication Reconciliation Discharge Plan Discharge Items Patient Disposition: Home - Self-Care Reason For Visit: CHEST PAIN Discharge Diagnosis: chest pain Activity: Resume your previous activity Non-emergency contact: Primary Care Provider Call non-emergency contact if: you have any medication questions and your symptoms worsen Follow-up/Referrals: Jaky Victoria MD [Primary Care Provider] - (Date & Time 12/22/2021 10:00 AM Provider Jaky Victoria MD Department General Internal Medicine [facility] ) Diet: Carb Consistent or DM2 and Heart Healthy Addtl Attending Provider Instructions: You were admitted for evaluation of atypical chest pain. You had blood tests and EKGs that were negative for any issues with the heart. You had an exercise stress test that was evaluated by Eligibility Examiner Dr. Ngo that was completely normal. You should try taking your pantoprazole (Protonix) at least 30 minutes prior to any meals. Please follow up with your Primary care doctor Dr. Victoria for further evaluation of your symptoms. Pending Studies at Discharge: No Stand-Alone Forms: My [employer], Smoking Cessation Medications and DC Order Prescriptions: Continued pravastatin 40 mg tablet 40 mg PO QPM pyridoxine (vitamin B6) [Vitamin B-6] 25 mg Tablet 25 mg PO QAM cyanocobalamin (vitamin B-12) [Vitamin B-12] 1,000 mcg Tablet 1,000 mcg PO QAM aspirin [Beth Low Dose Aspirin] 81 mg Tablet,Delayed Release (Dr/Ec) 81 mg PO PM losartan-hydrochlorothiazide 50-12.5 mg tablet 1 tab PO QAM metformin 500 mg tablet extended release 24 hr 500 mg PO QPM folic acid 800 mcg Tablet 0.8 mg PO QAM calcium citrate 200 mg (950 mg) Tablet 200 mg PO BID Systane Gel 0.3 % Gel 1 drp OPHTHALMIC (EYE) HS alendronate [Fosamax] 70 mg Tablet 70 mg PO WK acetaminophen [Tylenol 8 Hour] 650 mg tablet extended release 650 mg PO Q8H PRN (Reason: fever) Qty: 30 0RF fluticasone propionate 50 mcg/actuation spray,suspension 2 spray INTRANASAL DAILY pantoprazole 20 mg tablet,delayed release (DR/EC) 20 mg PO QAM Qty: 30 0RF Rx Instructions: Take at least 30 minutes before meals Discharge Orders: Discharge Order (Routine); Ordered 12/15/21 Ordered By: Acosta Johnson/Other Patient Handouts: Managing Type 2 Diabetes Admission Data Admit Date/Time: 12/14/21 14:21 Attending Provider: Aocsta Yun Admit Provider: Miko Watters Primary Care Provider: Jaky Victoria Other Providers: Miko Watters Other Interventions: Discharge Summary Assessment (RN) Last Done: 12/15/21 11:00
--- NOTE | 2021-12-17 05:43 | Electrocardiogram Report ---
Test Reason : Blood Pressure : / mmHG Vent. Rate : 057 BPM Atrial Rate : 057 BPM P-R Int : 156 ms QRS Dur : 092 ms QT Int : 446 ms P-R-T Axes : 045 -25 015 degrees QTc Int : 434 ms Sinus bradycardia Otherwise normal ECG When compared with ECG of 14-DEC-2021 11:49, T wave inversion now evident in Anterior leads Confirmed by Christiano Ewing ([id number]) on 12/17/2021 5:43:30 AM Referred By: REFERRED SELF Confirmed By:Christiano Ewing
== END 2021-12-15 13:31 | disposition home or self-care (01) ==
LOC: 2S 11:37 → ED 11:37 → SUATTDRO 14:21 → 2S 16:33